=== PATIENT | male | born 1950 | race Caucasian/White ===

== ENCOUNTER 2022-04-07 11:14 | Day surgery (SDC) | payer MEDICARE ==
[2022-04-07] MEDS ORDERED: LIDOCAINE HCL 1% 50 MG/5 ML VL PF IJ ONE (11:15)
[2022-04-07] MEDS ORDERED: Depo-Medrol 40 MG/ML IM ONE (11:15)
[2022-04-07] MEDS ORDERED: Sodium Chloride 0.9(Preservative Free) 10 ML IJ ONE (11:15)
[2022-04-07] MEDS ORDERED: Lactated Ringers 1,000 ML IV ONE (14:06)
--- NOTE | 2022-04-07 16:21 | XRAY ---
Indication: Lumbar BRYAN. Intraoperative fluoroscopy provided for 19 seconds. 2 digital spot image submitted for interpretation demonstrates posterior needle tip projecting posterior to lumbosacral junction. Small amount of contrast injected for needle tip placement. Correlate with intraoperative findings/report.
--- NOTE | 2022-04-07 16:36 | XRAY ---
19 seconds of fluoroscopy was used in surgery for a lumbar BRYAN.
== END 2022-04-07 14:10 | disposition home or self-care (01) ==
LOC: SDC-PAIN 11:14
PROVIDERS: ATTEND Psychiatry & Neurology Pain Medicine
DX: M54.16 Radiculopathy, lumbar region (principal); E11.9 Type 2 diabetes mellitus without complications; Z79.899 Other long term (current) drug therapy
CPT/HCPCS: 62323; 72100; 77003; 82947; J1030; J2001; Q9966

== ENCOUNTER 2022-06-23 09:24 | Day surgery (SDC) | payer MEDICARE ==
[2022-06-23] MEDS ORDERED: LIDOCAINE HCL 2% 100 MG/5 ML IJ ONE (09:25)
[2022-06-23] MEDS ORDERED: Pepcid 20 MG VIAL IV ONE (10:45)
[2022-06-23] MEDS ORDERED: Reglan 10 MG/2 ML ONE (10:45)
[2022-06-23] MEDS ORDERED: Zofran 4 MG/2 ML VIAL ONE (10:45)
[2022-06-23] MEDS ORDERED: DIPRIVAN 200 MG/20 ML IV ONE (12:05)
[2022-06-23] MEDS ORDERED: Lactated Ringers 1,000 ML IV ONE (12:24)
--- NOTE | 2022-06-23 12:28 | XRAY ---
Indication: Bilateral L5-S1 MBB. Intraoperative fluoroscopy provided for 10 seconds. Single digital spot image submitted for interpretation demonstrates posterior needle tips projecting over expected left and right L4-S1 nerve roots. Correlate with intraoperative findings/report.
--- NOTE | 2022-06-23 12:42 | XRAY ---
10 seconds of fluoroscopy was used in surgery for a bilateral L4-S1 MBB.
== END 2022-06-23 12:33 | disposition home or self-care (01) ==
LOC: SDC-PAIN 09:24
PROVIDERS: ATTEND Psychiatry & Neurology Pain Medicine
DX: M47.816 Spondylosis without myelopathy or radiculopathy, lumbar region (principal); E11.9 Type 2 diabetes mellitus without complications; Z79.899 Other long term (current) drug therapy
CPT/HCPCS: 64493; 64494; 72020; 77002; 82947; J2405; J2704

== ENCOUNTER 2022-09-22 10:26 | Day surgery (SDC) | payer MEDICARE ==
[2022-09-22] MEDS ORDERED: BUPIVACAINE 0.5% VIAL IJ ONE (10:27)
[2022-09-22] MEDS ORDERED: DIPRIVAN 200 MG/20 ML IV ONE (12:33)
--- NOTE | 2022-09-22 13:08 | XRAY ---
Indication: Bilateral L4-S1 MBB. Intraoperative fluoroscopy provided for 11 seconds. Single digital spot image submitted for interpretation demonstrates posterior needle tips projecting over the expected left and right L4-S1 nerve roots. Correlate with intraoperative findings/report.
[2022-09-22] MEDS ORDERED: Lactated Ringers 1,000 ML IV ONE (13:11)
--- NOTE | 2022-09-22 13:31 | XRAY ---
11 seconds of fluoroscopy was used in surgery for a bilateral L4-S1 MBB.
== END 2022-09-22 12:58 | disposition home or self-care (01) ==
LOC: SDC-PAIN 10:26
PROVIDERS: ATTEND Psychiatry & Neurology Pain Medicine
DX: M47.816 Spondylosis without myelopathy or radiculopathy, lumbar region (principal); E11.9 Type 2 diabetes mellitus without complications; Z79.899 Other long term (current) drug therapy
CPT/HCPCS: 64493; 64494; 72020; 77002; 82947; J2704